=== PATIENT | female | born 1975 | race African-American/Black ===

== ENCOUNTER 2022-07-31 10:19 | Outpatient (CLI) | payer MEDICARE, MEDICAID, SELFPAY ==
--- NOTE | ~2022-07-31 | MR_ITS ---
EXAMINATION: MR ankle LT wo con DATE: 07/31/2022 11:09 INDICATION: Injury with laceration to the left Achilles tendon and lateral left ankle pain. TECHNIQUE: Magnetic resonance imaging (MRI) of the left ankle was performed without intravenous contr ast. Sequences included sagittal, coronal, and axial proton-density weighted fast spin echo without a nd with fat saturation. COMPARISON: None. FINDINGS: Medial ankle ligaments: Deep and superficial deltoid ligaments as well as the spring ligament are normal. Lateral ankle ligaments: The anterior and posterior inferior tibiofibular ligaments are normal. Mild marrow edema along both s ides of an ununited versus nonunited avulsion fracture fragment comprising the footplate of the other fields normal calcaneofibular and portions of the normal posterior talofibular ligaments. There is mild thickening of the anterior talofibular ligament and minimal soft tissue edema about the anterior tip of the lateral malleolus suggesting likely subacute moderate grade sprain/partial tear. Tendons: Achilles tendon is normal. Mild tendinopathy without discrete tear of the peroneus brevis tendon. The re is additional mild tendinopathy of the peroneus longus tendon with a mild partial thickness tear i nvolving approximately 1/5 of the cross-sectional area at the anterolateral margin of the tendon near the level of the tip of the lateral malleolus. The tibialis anterior and extensor hallucis longus an d extensor digitorum longus tendons are normal. The tibialis posterior, flexor digitorum longus and f lexor hallucis longus tendons are normal. Small amount of fluid extending along the tibialis posterio r tendon consistent with mild tenosynovitis. Plantar fascia: Plantar aponeurosis is normal. Bones/other: No other fractures side from the previously noted avulsion fracture fragment at the posterior distal tip of the lateral malleolus. No pathologic marrow replacing process. Nonspecific mild marrow edema a long the inferior margin of the head of the talus without evident fracture which appears centered bet ween the articular surfaces of the subtalar and talonavicular joints, potentially related to posttrau matic contusion. Mild osteoarthritis with subarticular edema-like signal change at both sides of the second tarsal metatarsal joint. Remaining joint spaces appear relatively preserved. The Lisfranc liga ment complex is normal. Fluid: Small left ankle joint effusion accumulating primarily in the anterolateral recesses of the joint spa ce. There is also minimal talonavicular joint effusion surrounding primarily in the lateral recess of the joint space. IMPRESSION: 1. Lateral ankle injury with likely subacute moderate grade sprain/partial tear of the anterior talof ibular ligament and subacute to chronic nondisplaced ununited versus nonunited avulsion fracture frag ment involving the footplate of the calcaneofibular ligament and portions of the posterior talofibula r ligament. 2. Mild peroneus longus and brevis tendinopathy with mild partial thickness peroneus longus tendon te ar at the level of the tip of the lateral malleolus. 3. Mild marrow edema along the nonarticular inferomedial margin of the head of the talus potentially related to bone contusion. 4. Mild osteoarthritis with high-grade chondral malacia and associated subarticular edema-like signal change at both sides of the second tarsal metatarsal joint. Reviewed, dictated and finalized at location A. [facility] ASSISTANT IMPRESSION: 1. Lateral ankle injury with likely subacute moderate grade sprain/partial tear of the anterior talofibular ligament and subacute to chronic nondisplaced unun ited versus nonunited avulsion fracture fragment involving the footplate of the calcaneof
== END 2022-07-31 10:20 | disposition home or self-care (01) ==
LOC: ANHIMG 10:24
PROVIDERS: PCP Nurse Practitioner Family; Visit Provider Orthopaedic Surgery
DX: S99.912A Unspecified injury of left ankle, initial encounter (principal); X58.XXXA Exposure to other specified factors, initial encounter; M19.072 Primary osteoarthritis, left ankle and foot
CPT/HCPCS: 73721